=== PATIENT | male | born 1985 | race African-American/Black ===

== ENCOUNTER 2020-07-19 05:37 | Emergency (ER) | payer BC ==
[2020-07-19] MEDS ORDERED: Ketorolac Tromethamine 30 MG/ML VIAL ONE (06:12)
[2020-07-19] MEDS ORDERED: Colchicine 0.6 MG TAB ONE (06:14)
== END 2020-07-19 06:32 | disposition home or self-care (01) ==
LOC: CSHERS 05:37
DX: M10.9 Gout, unspecified (principal)
CPT/HCPCS: 96372; 99283; J1885

== ENCOUNTER 2022-03-04 11:52 | Emergency (ER) | payer BC, OTHER, SELFPAY ==
[2022-03-04] MEDS ORDERED: Ketorolac Tromethamine 30 MG/ML VIAL ONE (13:50)
[2022-03-04] MEDS ORDERED: Dexamethasone 10 MG/ML VIAL ONE (13:50)
== END 2022-03-04 14:10 | disposition home or self-care (01) ==
LOC: CSHERS 11:52
DX: M10.9 Gout, unspecified (principal)
CPT/HCPCS: 96372; 99282; J1100; J1885

== ENCOUNTER 2022-12-30 08:40 | Emergency (ER) | payer BC, SELFPAY | END 2022-12-30 09:47 | disposition home or self-care (01) | LOC: CSHERS 08:40 | DX: M19.021 Primary osteoarthritis, right elbow (principal); G56.92 Unspecified mononeuropathy of left upper limb | CPT/HCPCS: 99283 ==

== ENCOUNTER 2023-09-06 09:41 | Emergency (ER) | payer BC, SELFPAY ==
[2023-09-06] MEDS ORDERED: Ketorolac Tromethamine 30 MG (1 mL) VIAL ONE (10:34)
[2023-09-06] MEDS ORDERED: Metoclopramide HCl 10 MG TAB ONE (10:35)
== END 2023-09-06 11:15 | disposition home or self-care (01) ==
LOC: CSHERS 09:41
DX: R51.9 Headache, unspecified (principal)
CPT/HCPCS: 96372; J1885

== ENCOUNTER 2024-11-10 14:22 | Outpatient (CLI) | payer BC | END 2024-11-10 14:23 | disposition home or self-care (01) | LOC: CSHRAD 14:22 | PROVIDERS: ATTEND Internal Medicine | DX: M79.641 Pain in right hand (principal); M19.041 Primary osteoarthritis, right hand ==